=== PATIENT | female | born 1940 | race Two or more races ===

== ENCOUNTER 2018-01-06 09:02 | Outpatient (CLI) | payer OTHER | END 2018-01-06 09:05 | disposition home or self-care (01) | LOC: LAB 09:02 | DX: C50.111 Malignant neoplasm of central portion of right female breast (principal); D51.8 Other vitamin B12 deficiency anemias; E06.3 Autoimmune thyroiditis; I10 Essential (primary) hypertension; E08.65 Diabetes mellitus due to underlying condition with hyperglycemia; Z95.1 Presence of aortocoronary bypass graft; D50.8 Other iron deficiency anemias; R97.0 Elevated carcinoembryonic antigen [CEA]; R97.8 Other abnormal tumor markers ==

== ENCOUNTER 2018-04-18 09:39 | Outpatient (CLI) | payer OTHER | END 2018-04-18 09:40 | disposition home or self-care (01) | LOC: LAB 09:39 | DX: C50.111 Malignant neoplasm of central portion of right female breast (principal); D51.8 Other vitamin B12 deficiency anemias; E06.3 Autoimmune thyroiditis; I10 Essential (primary) hypertension; E08.65 Diabetes mellitus due to underlying condition with hyperglycemia; Z95.1 Presence of aortocoronary bypass graft; D50.8 Other iron deficiency anemias; R97.0 Elevated carcinoembryonic antigen [CEA]; R97.8 Other abnormal tumor markers; K90.89 Other intestinal malabsorption ==

== ENCOUNTER 2018-04-25 07:18 | Outpatient (CLI) | payer OTHER | END 2018-04-25 09:38 | disposition home or self-care (01) | LOC: TOM 07:18 | DX: C50.111 Malignant neoplasm of central portion of right female breast (principal); D51.8 Other vitamin B12 deficiency anemias; E06.3 Autoimmune thyroiditis; I10 Essential (primary) hypertension; E08.65 Diabetes mellitus due to underlying condition with hyperglycemia; Z95.1 Presence of aortocoronary bypass graft | CPT/HCPCS: 71260; 74177; Q9965 ==

== ENCOUNTER 2018-05-04 08:14 | Outpatient (CLI) | payer OTHER | END 2018-05-04 09:00 | disposition home or self-care (01) | LOC: NUCLEAR 08:14 | DX: M81.0 Age-related osteoporosis without current pathological fracture (principal); C50.111 Malignant neoplasm of central portion of right female breast; D51.8 Other vitamin B12 deficiency anemias; I10 Essential (primary) hypertension; E08.65 Diabetes mellitus due to underlying condition with hyperglycemia; Z95.1 Presence of aortocoronary bypass graft ==

== ENCOUNTER → 2018-08-05 | Outpatient (CLI) | payer OTHER | END | disposition home or self-care (01) | LOC: LAB 09:02 | DX: C50.111 Malignant neoplasm of central portion of right female breast (principal); D51.8 Other vitamin B12 deficiency anemias; E06.3 Autoimmune thyroiditis; I10 Essential (primary) hypertension; E08.65 Diabetes mellitus due to underlying condition with hyperglycemia; Z95.1 Presence of aortocoronary bypass graft; D50.8 Other iron deficiency anemias; E03.8 Other specified hypothyroidism; R97.0 Elevated carcinoembryonic antigen [CEA]; R97.8 Other abnormal tumor markers; D51.0 Vitamin B12 deficiency anemia due to intrinsic factor deficiency; D51.1 Vitamin B12 deficiency anemia due to selective vitamin B12 malabsorption with proteinuria; I87.2 Venous insufficiency (chronic) (peripheral) ==

== ENCOUNTER 2018-11-09 08:39 | Outpatient (CLI) | payer OTHER | END 2018-11-09 15:00 | disposition home or self-care (01) | LOC: LAB 08:39 | DX: C50.111 Malignant neoplasm of central portion of right female breast (principal); D51.8 Other vitamin B12 deficiency anemias; D72.1 Eosinophilia; E06.3 Autoimmune thyroiditis; I10 Essential (primary) hypertension; E08.65 Diabetes mellitus due to underlying condition with hyperglycemia; Z95.1 Presence of aortocoronary bypass graft; J30.89 Other allergic rhinitis; D50.8 Other iron deficiency anemias; R97.0 Elevated carcinoembryonic antigen [CEA]; R97.8 Other abnormal tumor markers; R73.01 Impaired fasting glucose ==

== ENCOUNTER 2019-01-20 09:28 | Outpatient (CLI) | payer OTHER | END 2019-01-20 09:58 | disposition home or self-care (01) | LOC: LAB 09:28 | DX: R19.8 Other specified symptoms and signs involving the digestive system and abdomen (principal); E06.5 Other chronic thyroiditis; L50.8 Other urticaria ==

== ENCOUNTER 2019-03-27 07:26 | Outpatient (CLI) | payer OTHER | END 2019-03-27 07:33 | disposition home or self-care (01) | LOC: LAB 07:26 | DX: D72.1 Eosinophilia (principal); I10 Essential (primary) hypertension; R73.01 Impaired fasting glucose ==

== ENCOUNTER 2019-04-03 07:18 | Outpatient (CLI) | payer OTHER | END 2019-04-03 07:36 | disposition home or self-care (01) | LOC: TOM 07:18 | DX: E08.65 Diabetes mellitus due to underlying condition with hyperglycemia (principal); C50.111 Malignant neoplasm of central portion of right female breast; D51.8 Other vitamin B12 deficiency anemias; D72.1 Eosinophilia; E06.3 Autoimmune thyroiditis; I10 Essential (primary) hypertension; Z95.1 Presence of aortocoronary bypass graft; J30.89 Other allergic rhinitis | CPT/HCPCS: 71260; 74177; Q9965 ==

== ENCOUNTER 2019-04-06 07:06 | Outpatient (CLI) | payer OTHER | END 2019-04-06 07:18 | disposition home or self-care (01) | LOC: LAB 07:06 | DX: C50.111 Malignant neoplasm of central portion of right female breast (principal); D51.8 Other vitamin B12 deficiency anemias; D72.1 Eosinophilia; E06.3 Autoimmune thyroiditis; I10 Essential (primary) hypertension; E08.65 Diabetes mellitus due to underlying condition with hyperglycemia; Z95.1 Presence of aortocoronary bypass graft; J30.9 Allergic rhinitis, unspecified; D50.8 Other iron deficiency anemias; K90.89 Other intestinal malabsorption; R97.0 Elevated carcinoembryonic antigen [CEA]; R97.8 Other abnormal tumor markers ==

== ENCOUNTER → 2019-07-21 09:09 | Outpatient (CLI) | payer OTHER ==
[~2019-07-21 09:09] MED LIST: COZAAR50 MG
== END | disposition home or self-care (01) ==
LOC: LAB 09:09
DX: C50.111 Malignant neoplasm of central portion of right female breast (principal); D51.8 Other vitamin B12 deficiency anemias; D72.1 Eosinophilia; E06.3 Autoimmune thyroiditis; I10 Essential (primary) hypertension; E08.65 Diabetes mellitus due to underlying condition with hyperglycemia; Z95.1 Presence of aortocoronary bypass graft; J30.89 Other allergic rhinitis; D50.8 Other iron deficiency anemias; R97.0 Elevated carcinoembryonic antigen [CEA]; R97.8 Other abnormal tumor markers

== ENCOUNTER 2019-07-24 13:23 | Emergency (ER) | payer OTHER ==
[~2019-07-24] VITALS: Ht 157.5 cm; Wt 61.2 kg
[2019-07-24] MEDS ORDERED: COZAAR50 MG (13:42)
== END 2019-07-24 17:11 | disposition home or self-care (01) ==
LOC: ER 13:23
DX: R42 Dizziness and giddiness (principal)

== ENCOUNTER 2019-07-25 11:28 | Emergency (ER) | payer OTHER ==
[~2019-07-25] VITALS: Ht 152.4 cm; Wt 61.2 kg
== END 2019-07-25 16:03 | disposition home or self-care (01) ==
LOC: ER 11:28
DX: R42 Dizziness and giddiness (principal); R47.81 Slurred speech; R53.1 Weakness
CPT/HCPCS: 70552

== ENCOUNTER 2019-08-01 14:24 | Outpatient (CLI) | payer OTHER | END 2019-08-01 14:30 | disposition home or self-care (01) | LOC: MAMO-SONO 14:24 | DX: C50.111 Malignant neoplasm of central portion of right female breast (principal); D51.8 Other vitamin B12 deficiency anemias; D72.1 Eosinophilia; E06.3 Autoimmune thyroiditis; I10 Essential (primary) hypertension; E08.65 Diabetes mellitus due to underlying condition with hyperglycemia; Z95.1 Presence of aortocoronary bypass graft; J30.89 Other allergic rhinitis ==

== ENCOUNTER 2019-08-14 09:15 | Outpatient (CLI) | payer OTHER | END 2019-08-14 09:38 | disposition home or self-care (01) | LOC: NUCLEAR 09:15 | DX: I63.513 Cerebral infarction due to unspecified occlusion or stenosis of bilateral middle cerebral arteries (principal) ==

== ENCOUNTER 2019-11-21 14:30 | Emergency (ER) | payer OTHER ==
[~2019-11-21] VITALS: Ht 157.5 cm; Wt 61.7 kg
== END 2019-11-21 17:57 | disposition home or self-care (01) ==
LOC: ER 14:30
DX: B34.9 Viral infection, unspecified (principal); R06.02 Shortness of breath

== ENCOUNTER → 2019-11-28 | Outpatient (CLI) | payer OTHER | END | disposition home or self-care (01) | LOC: RAD 11:27 | DX: M54.5 Low back pain (principal) ==

== ENCOUNTER 2019-12-20 07:40 | Outpatient (CLI) | payer OTHER | END 2019-12-20 07:50 | disposition home or self-care (01) | LOC: LAB 07:40 | DX: C50.111 Malignant neoplasm of central portion of right female breast (principal); D51.8 Other vitamin B12 deficiency anemias; D72.1 Eosinophilia; E06.3 Autoimmune thyroiditis; I10 Essential (primary) hypertension; E08.65 Diabetes mellitus due to underlying condition with hyperglycemia; Z95.1 Presence of aortocoronary bypass graft; J30.89 Other allergic rhinitis; I63.89 Other cerebral infarction; I67.89 Other cerebrovascular disease; I69.352 Hemiplegia and hemiparesis following cerebral infarction affecting left dominant side; D50.8 Other iron deficiency anemias; R97.0 Elevated carcinoembryonic antigen [CEA]; R97.8 Other abnormal tumor markers ==

== ENCOUNTER → 2020-03-11 07:23 | Outpatient (CLI) | payer OTHER | END | disposition home or self-care (01) | LOC: LAB 07:23 | DX: D50.8 Other iron deficiency anemias (principal); I10 Essential (primary) hypertension; D51.8 Other vitamin B12 deficiency anemias; C50.919 Malignant neoplasm of unspecified site of unspecified female breast; R97.8 Other abnormal tumor markers; R97.0 Elevated carcinoembryonic antigen [CEA]; C50.111 Malignant neoplasm of central portion of right female breast; D72.1 Eosinophilia; E06.3 Autoimmune thyroiditis; E08.65 Diabetes mellitus due to underlying condition with hyperglycemia; Z95.1 Presence of aortocoronary bypass graft; J30.89 Other allergic rhinitis; I63.89 Other cerebral infarction; I00-I99 Diseases of the circulatory system; I69.352 Hemiplegia and hemiparesis following cerebral infarction affecting left dominant side ==

== ENCOUNTER 2020-03-19 07:19 | Outpatient (CLI) | payer OTHER | END 2020-03-19 07:24 | disposition home or self-care (01) | LOC: NUCLEAR 07:19 | DX: C50.111 Malignant neoplasm of central portion of right female breast (principal); D51.8 Other vitamin B12 deficiency anemias; D72.1 Eosinophilia; E06.3 Autoimmune thyroiditis; I10 Essential (primary) hypertension; E08.65 Diabetes mellitus due to underlying condition with hyperglycemia; Z95.1 Presence of aortocoronary bypass graft; J30.9 Allergic rhinitis, unspecified; I63.9 Cerebral infarction, unspecified; I67.89 Other cerebrovascular disease; I69.352 Hemiplegia and hemiparesis following cerebral infarction affecting left dominant side | CPT/HCPCS: 78816; A9552 ==

== ENCOUNTER 2020-08-06 09:34 | Outpatient (CLI) | payer OTHER | END 2020-08-06 09:39 | disposition home or self-care (01) | LOC: LAB 09:34 | PROVIDERS: ATTEND Internal Medicine Hematology & Oncology | DX: D50.8 Other iron deficiency anemias (principal); D51.8 Other vitamin B12 deficiency anemias; C50.919 Malignant neoplasm of unspecified site of unspecified female breast; R97.8 Other abnormal tumor markers; R97.0 Elevated carcinoembryonic antigen [CEA]; I10 Essential (primary) hypertension; C50.111 Malignant neoplasm of central portion of right female breast; D72.1 Eosinophilia; E06.3 Autoimmune thyroiditis; E08.65 Diabetes mellitus due to underlying condition with hyperglycemia; Z95.1 Presence of aortocoronary bypass graft; J30.89 Other allergic rhinitis; I63.89 Other cerebral infarction; I67.89 Other cerebrovascular disease; I69.352 Hemiplegia and hemiparesis following cerebral infarction affecting left dominant side ==

== ENCOUNTER 2020-08-19 10:12 | Outpatient (CLI) | payer OTHER | END 2020-08-19 10:18 | disposition home or self-care (01) | LOC: MAMO-SONO 10:12 | PROVIDERS: ATTEND Internal Medicine Hematology & Oncology | DX: C50.111 Malignant neoplasm of central portion of right female breast (principal); D51.8 Other vitamin B12 deficiency anemias; D72.19 Other eosinophilia; E06.3 Autoimmune thyroiditis; I10 Essential (primary) hypertension; E08.65 Diabetes mellitus due to underlying condition with hyperglycemia; Z95.1 Presence of aortocoronary bypass graft; J30.89 Other allergic rhinitis; I63.89 Other cerebral infarction; I67.89 Other cerebrovascular disease; I69.352 Hemiplegia and hemiparesis following cerebral infarction affecting left dominant side ==

== ENCOUNTER → 2020-10-04 | Emergency (ER) | payer OTHER ==
[~2020-10-04] VITALS: Ht 157.5 cm; Wt 60.8 kg
[~2020-10-04] MED LIST changes: +ATORVASTATIN CA10 MG PO; +CELECOXIB200 MG PO; +CETIRIZINE HCL10 MG PO; +CLOPIDOGREL BIS75 MG PO; +CYANOCOBAL1000 MCG/1; +GABAPENTIN100 M2 PO; +LOSARTAN POTASS25 MG PO; +MONTELUKAST SOD10 MG PO; +PHENERGAN25 MG PO; +TRAM1TAB98 PO; +VITAMIN D31250 MCG PO
== END | disposition home or self-care (01) ==
LOC: ER 08:56
DX: S30.0XXA Contusion of lower back and pelvis, initial encounter (principal); M54.5 Low back pain; M62.830 Muscle spasm of back; W18.39XA Other fall on same level, initial encounter; Y93.89 Activity, other specified; Y92.098 Other place in other non-institutional residence as the place of occurrence of the external cause; Y99.8 Other external cause status

== ENCOUNTER 2020-10-22 14:45 | Emergency (ER) | payer OTHER ==
[~2020-10-22] VITALS: Ht 157.5 cm; Wt 59.0 kg
[~2020-10-22 14:45] MED LIST changes: -ATORVASTATIN CA10 MG PO; -CELECOXIB200 MG PO; -CETIRIZINE HCL10 MG PO; -CLOPIDOGREL BIS75 MG PO; -CYANOCOBAL1000 MCG/1; -GABAPENTIN100 M2 PO; -LOSARTAN POTASS25 MG PO; -MONTELUKAST SOD10 MG PO; -PHENERGAN25 MG PO; -TRAM1TAB98 PO; -VITAMIN D31250 MCG PO
[2020-10-22] MEDS ORDERED: MONTELUKAST SOD10 MG PO (15:18)
[2020-10-22] MEDS ORDERED: GABAPENTIN100 M2 PO (15:18)
[2020-10-22] MEDS ORDERED: TRAM1TAB98 PO (15:19)
[2020-10-22] MEDS ORDERED: CLOPIDOGREL BIS75 MG PO (15:19)
[2020-10-22] MEDS ORDERED: CELECOXIB200 MG PO (15:19)
[2020-10-22] MEDS ORDERED: LOSARTAN POTASS25 MG PO (15:20)
[2020-10-22] MEDS ORDERED: VITAMIN D31250 MCG PO (15:20)
[2020-10-22] MEDS ORDERED: CYANOCOBAL1000 MCG/1 (15:20)
[2020-10-22] MEDS ORDERED: CETIRIZINE HCL10 MG PO (15:20)
[2020-10-22] MEDS ORDERED: ATORVASTATIN CA10 MG PO (15:21)
[2020-10-22] MEDS ORDERED: PHENERGAN25 MG PO (19:19)
== END 2020-10-22 19:27 | disposition home or self-care (01) ==
LOC: ER 14:45
DX: M54.5 Low back pain (principal); G89.11 Acute pain due to trauma

== ENCOUNTER 2020-12-11 08:17 | Outpatient (CLI) | payer OTHER ==
[~2020-12-11 08:17] MED LIST changes: +ATORVASTATIN CA10 MG PO; +CELECOXIB200 MG PO; +CETIRIZINE HCL10 MG PO; +CLOPIDOGREL BIS75 MG PO; +CYANOCOBAL1000 MCG/1; +GABAPENTIN100 M2 PO; +LOSARTAN POTASS25 MG PO; +MONTELUKAST SOD10 MG PO; +PHENERGAN25 MG PO; +TRAM1TAB98 PO; +VITAMIN D31250 MCG PO
== END 2020-12-11 08:23 | disposition home or self-care (01) ==
LOC: LAB 08:17
PROVIDERS: ATTEND Internal Medicine Hematology & Oncology
DX: D50.8 Other iron deficiency anemias (principal); I10 Essential (primary) hypertension; R74.02 Elevation of levels of lactic acid dehydrogenase [LDH]; K76.89 Other specified diseases of liver; R79.89 Other specified abnormal findings of blood chemistry; D51.8 Other vitamin B12 deficiency anemias; C50.919 Malignant neoplasm of unspecified site of unspecified female breast; R97.8 Other abnormal tumor markers; R97.0 Elevated carcinoembryonic antigen [CEA]; C50.111 Malignant neoplasm of central portion of right female breast; D72.19 Other eosinophilia; E06.3 Autoimmune thyroiditis; E08.65 Diabetes mellitus due to underlying condition with hyperglycemia; Z95.1 Presence of aortocoronary bypass graft; J30.89 Other allergic rhinitis; I63.89 Other cerebral infarction; I67.89 Other cerebrovascular disease; I69.352 Hemiplegia and hemiparesis following cerebral infarction affecting left dominant side

== ENCOUNTER 2021-01-22 13:52 | Outpatient (CLI) | payer OTHER | END 2021-01-22 13:55 | disposition home or self-care (01) | LOC: NUCLEAR 13:52 | PROVIDERS: ATTEND Internal Medicine | DX: M81.0 Age-related osteoporosis without current pathological fracture (principal) ==

== ENCOUNTER → 2021-05-13 10:46 | Outpatient (CLI) | payer OTHER | END | disposition home or self-care (01) | LOC: LAB 10:46 | PROVIDERS: ATTEND Internal Medicine Cardiovascular Disease | DX: I63.81 Other cerebral infarction due to occlusion or stenosis of small artery (principal) ==

== ENCOUNTER 2021-06-27 11:01 | Outpatient (CLI) | payer OTHER | END 2021-06-27 11:07 | disposition home or self-care (01) | LOC: LAB 11:01 | PROVIDERS: ATTEND Internal Medicine Hematology & Oncology | DX: D50.8 Other iron deficiency anemias (principal); I10 Essential (primary) hypertension; R74.02 Elevation of levels of lactic acid dehydrogenase [LDH]; K76.89 Other specified diseases of liver; R79.89 Other specified abnormal findings of blood chemistry; D51.8 Other vitamin B12 deficiency anemias; C50.919 Malignant neoplasm of unspecified site of unspecified female breast; R97.8 Other abnormal tumor markers; R97.0 Elevated carcinoembryonic antigen [CEA]; C50.111 Malignant neoplasm of central portion of right female breast; E06.3 Autoimmune thyroiditis; E08.65 Diabetes mellitus due to underlying condition with hyperglycemia; Z95.1 Presence of aortocoronary bypass graft; J30.89 Other allergic rhinitis; I63.89 Other cerebral infarction; I67.89 Other cerebrovascular disease; I69.352 Hemiplegia and hemiparesis following cerebral infarction affecting left dominant side ==

== ENCOUNTER → 2021-09-10 09:04 | Outpatient (CLI) | payer OTHER | END | disposition home or self-care (01) | LOC: LAB 09:04 | PROVIDERS: ATTEND Internal Medicine Hematology & Oncology | DX: D50.8 Other iron deficiency anemias (principal); I10 Essential (primary) hypertension; R74.02 Elevation of levels of lactic acid dehydrogenase [LDH]; K76.89 Other specified diseases of liver; R79.89 Other specified abnormal findings of blood chemistry; R97.8 Other abnormal tumor markers; R97.0 Elevated carcinoembryonic antigen [CEA]; C50.111 Malignant neoplasm of central portion of right female breast; D51.8 Other vitamin B12 deficiency anemias; D72.19 Other eosinophilia; E06.3 Autoimmune thyroiditis; E08.65 Diabetes mellitus due to underlying condition with hyperglycemia; Z95.1 Presence of aortocoronary bypass graft; J30.89 Other allergic rhinitis; I63.89 Other cerebral infarction; I67.89 Other cerebrovascular disease; I69.352 Hemiplegia and hemiparesis following cerebral infarction affecting left dominant side ==

== ENCOUNTER 2021-11-30 11:45 | Outpatient (CLI) | payer OTHER | END 2021-11-30 11:52 | disposition home or self-care (01) | LOC: MRI 11:45 | PROVIDERS: ATTEND Internal Medicine Hematology & Oncology | DX: M48.07 Spinal stenosis, lumbosacral region (principal); C50.111 Malignant neoplasm of central portion of right female breast; D51.8 Other vitamin B12 deficiency anemias; E06.3 Autoimmune thyroiditis; I10 Essential (primary) hypertension; E08.65 Diabetes mellitus due to underlying condition with hyperglycemia; Z95.1 Presence of aortocoronary bypass graft; J30.89 Other allergic rhinitis; I63.89 Other cerebral infarction; I67.89 Other cerebrovascular disease; I69.352 Hemiplegia and hemiparesis following cerebral infarction affecting left dominant side | CPT/HCPCS: 72148 ==

== ENCOUNTER 2021-12-09 09:19 | Outpatient (CLI) | payer OTHER | END 2021-12-09 09:25 | disposition home or self-care (01) | LOC: LAB 09:19 | PROVIDERS: ATTEND Internal Medicine Hematology & Oncology | DX: D50.8 Other iron deficiency anemias (principal); I10 Essential (primary) hypertension; R74.02 Elevation of levels of lactic acid dehydrogenase [LDH]; K76.89 Other specified diseases of liver; R79.9 Abnormal finding of blood chemistry, unspecified; C50.919 Malignant neoplasm of unspecified site of unspecified female breast; R97.8 Other abnormal tumor markers; E55.9 Vitamin D deficiency, unspecified; D51.8 Other vitamin B12 deficiency anemias ==

== ENCOUNTER 2022-03-08 07:53 | Outpatient (CLI) | payer OTHER | END 2022-03-08 08:04 | disposition home or self-care (01) | LOC: LAB 07:53 | PROVIDERS: ATTEND Internal Medicine Cardiovascular Disease | DX: D64.9 Anemia, unspecified (principal); D72.9 Disorder of white blood cells, unspecified; E78.01 Familial hypercholesterolemia; E03.8 Other specified hypothyroidism; E55.9 Vitamin D deficiency, unspecified ==

== ENCOUNTER 2022-05-11 08:45 | Outpatient (CLI) | payer OTHER | END 2022-05-11 08:46 | disposition home or self-care (01) | LOC: LAB 08:45 | PROVIDERS: ATTEND Internal Medicine Hematology & Oncology | DX: D50.8 Other iron deficiency anemias (principal); I10 Essential (primary) hypertension; R74.02 Elevation of levels of lactic acid dehydrogenase [LDH]; K76.89 Other specified diseases of liver; D51.8 Other vitamin B12 deficiency anemias; E55.9 Vitamin D deficiency, unspecified; C50.919 Malignant neoplasm of unspecified site of unspecified female breast; R97.8 Other abnormal tumor markers; R97.0 Elevated carcinoembryonic antigen [CEA]; C50.111 Malignant neoplasm of central portion of right female breast; E06.3 Autoimmune thyroiditis; E08.65 Diabetes mellitus due to underlying condition with hyperglycemia; Z95.1 Presence of aortocoronary bypass graft; J30.9 Allergic rhinitis, unspecified; I63.9 Cerebral infarction, unspecified; I67.89 Other cerebrovascular disease; I69.352 Hemiplegia and hemiparesis following cerebral infarction affecting left dominant side ==

== ENCOUNTER 2022-08-23 08:49 | Outpatient (CLI) | payer OTHER | END 2022-08-23 08:53 | disposition home or self-care (01) | LOC: LAB 08:49 | PROVIDERS: ATTEND Internal Medicine Hematology & Oncology | DX: D50.8 Other iron deficiency anemias (principal); I10 Essential (primary) hypertension; R74.02 Elevation of levels of lactic acid dehydrogenase [LDH]; K76.89 Other specified diseases of liver; D51.8 Other vitamin B12 deficiency anemias; E55.9 Vitamin D deficiency, unspecified; E03.8 Other specified hypothyroidism; R97.8 Other abnormal tumor markers; R97.0 Elevated carcinoembryonic antigen [CEA]; C50.111 Malignant neoplasm of central portion of right female breast; I69.352 Hemiplegia and hemiparesis following cerebral infarction affecting left dominant side; J30.9 Allergic rhinitis, unspecified; E08.65 Diabetes mellitus due to underlying condition with hyperglycemia ==

== ENCOUNTER 2022-12-13 08:56 | Outpatient (CLI) | payer OTHER | END 2022-12-13 09:00 | disposition home or self-care (01) | LOC: RAD 08:56 | PROVIDERS: ATTEND Internal Medicine | DX: M25.571 Pain in right ankle and joints of right foot (principal) ==

== ENCOUNTER 2022-12-15 08:49 | Outpatient (CLI) | payer OTHER | END 2022-12-15 08:53 | disposition home or self-care (01) | LOC: LAB 08:49 | PROVIDERS: ATTEND Internal Medicine Hematology & Oncology | DX: D50.8 Other iron deficiency anemias (principal); I10 Essential (primary) hypertension; R74.02 Elevation of levels of lactic acid dehydrogenase [LDH]; K76.89 Other specified diseases of liver; D51.8 Other vitamin B12 deficiency anemias; E55.9 Vitamin D deficiency, unspecified; E03.8 Other specified hypothyroidism; C50.919 Malignant neoplasm of unspecified site of unspecified female breast; R97.8 Other abnormal tumor markers; D47.2 Monoclonal gammopathy; C90.00 Multiple myeloma not having achieved remission; C50.111 Malignant neoplasm of central portion of right female breast; E06.3 Autoimmune thyroiditis; E08.65 Diabetes mellitus due to underlying condition with hyperglycemia; Z95.1 Presence of aortocoronary bypass graft; J30.9 Allergic rhinitis, unspecified; I63.9 Cerebral infarction, unspecified; I67.89 Other cerebrovascular disease; I69.352 Hemiplegia and hemiparesis following cerebral infarction affecting left dominant side; D72.19 Other eosinophilia ==

== ENCOUNTER 2022-12-15 09:53 | Outpatient (CLI) | payer OTHER | END 2022-12-15 10:16 | disposition home or self-care (01) | LOC: MAMO-SONO 09:53 | PROVIDERS: ATTEND Internal Medicine Hematology & Oncology | DX: Z12.31 Encounter for screening mammogram for malignant neoplasm of breast (principal); N63.0 Unspecified lump in unspecified breast; N64.4 Mastodynia; C50.111 Malignant neoplasm of central portion of right female breast ==

== ENCOUNTER 2022-12-23 07:31 | Outpatient (CLI) | payer OTHER | END 2022-12-23 07:33 | disposition home or self-care (01) | LOC: NUCLEAR 07:31 | PROVIDERS: ATTEND Internal Medicine Hematology & Oncology | DX: C50.911 Malignant neoplasm of unspecified site of right female breast (principal); D51.8 Other vitamin B12 deficiency anemias; D72.10 Eosinophilia, unspecified; E06.3 Autoimmune thyroiditis; I10 Essential (primary) hypertension; E08.65 Diabetes mellitus due to underlying condition with hyperglycemia; Z95.1 Presence of aortocoronary bypass graft; J30.9 Allergic rhinitis, unspecified; I63.9 Cerebral infarction, unspecified; I67.89 Other cerebrovascular disease; I69.352 Hemiplegia and hemiparesis following cerebral infarction affecting left dominant side | CPT/HCPCS: 78815; A9552 ==

== ENCOUNTER 2023-05-13 08:08 | Outpatient (CLI) | payer OTHER | END 2023-05-13 08:10 | disposition home or self-care (01) | LOC: LAB 08:08 | PROVIDERS: ATTEND Internal Medicine Hematology & Oncology | DX: D50.8 Other iron deficiency anemias (principal); I10 Essential (primary) hypertension; R74.02 Elevation of levels of lactic acid dehydrogenase [LDH]; K76.89 Other specified diseases of liver; D51.8 Other vitamin B12 deficiency anemias; R97.8 Other abnormal tumor markers; C50.919 Malignant neoplasm of unspecified site of unspecified female breast; C50.111 Malignant neoplasm of central portion of right female breast; E06.3 Autoimmune thyroiditis; E08.65 Diabetes mellitus due to underlying condition with hyperglycemia; Z95.1 Presence of aortocoronary bypass graft; J30.9 Allergic rhinitis, unspecified; I63.9 Cerebral infarction, unspecified; I67.89 Other cerebrovascular disease; I69.352 Hemiplegia and hemiparesis following cerebral infarction affecting left dominant side; D72.19 Other eosinophilia ==

== ENCOUNTER 2023-09-14 07:23 | Outpatient (CLI) | payer OTHER ==
[2023-09-14 08:44] LABS: ALBUMIN 3.7 gm/dL (3.4-5.0); BILIRUBIN TOTAL 0.56 mg/dL (0.3-1.2); BILIRUBIN,CONJUGATED 0.17 mg/dL (0.0-0.2); BILIRUBIN,UNCONJUGATED 0.39 mg/dL (0.0-0.6); CALCIUM 9.2 mg/dL (8.5-10.1); CREATININE SERUM 0.78 mg/dL (0.55-1.02); GFR 70.71; HEMOGLOBIN 12.2 g/dL (12.0-15.00); MEAN CELL VOLUME 88.8 fL (80.00-100.00); MEAN CORPUSCULAR HEMOGLOBIN 31.1 pg (27.00-32.0); PLATELET COUNT 171 K/uL (150-450); POTASSIUM 4.16 mEq/L (3.5-5.1); RED BLOOD COUNT 3.94 M/uL (4.00-6.00); TOTAL PROTEIN 7.5 gm/dL (6.4-8.2)
== END 2023-09-14 07:24 | disposition home or self-care (01) ==
LOC: LAB 07:23
PROVIDERS: ATTEND Internal Medicine Hematology & Oncology
DX: I10 Essential (primary) hypertension (principal); R74.02 Elevation of levels of lactic acid dehydrogenase [LDH]; K76.89 Other specified diseases of liver; D51.8 Other vitamin B12 deficiency anemias; C50.919 Malignant neoplasm of unspecified site of unspecified female breast; R97.8 Other abnormal tumor markers; R97.0 Elevated carcinoembryonic antigen [CEA]; C50.111 Malignant neoplasm of central portion of right female breast; E06.3 Autoimmune thyroiditis; E08.65 Diabetes mellitus due to underlying condition with hyperglycemia; Z95.1 Presence of aortocoronary bypass graft; J30.9 Allergic rhinitis, unspecified; I63.9 Cerebral infarction, unspecified; I67.89 Other cerebrovascular disease; I69.352 Hemiplegia and hemiparesis following cerebral infarction affecting left dominant side

== ENCOUNTER 2023-12-16 09:53 | Outpatient (CLI) | payer OTHER ==
[2023-12-16 10:35] LABS: HEMATOCRIT 37.6 % (36.0-45.00); HEMOGLOBIN 12.5 g/dL (12.0-15.00); MEAN CELL VOLUME 88.1 fL (80.00-100.00); MEAN CORPUSCULAR HEMOGLOBIN 29.3 pg (27.00-32.0); MEAN CORPUSCULAR HGB CONC 33.3 g/dl (32.0-36.0); PLATELET COUNT 149 K/uL (150-450); RED BLOOD COUNT 4.26 M/uL (4.00-6.00); RED CELL DISTRIBUTION WIDTH 12.5 % (11.5-14.5)
[2023-12-16 11:04] LABS: BILIRUBIN TOTAL 0.6 mg/dL (0.3-1.2); BILIRUBIN,CONJUGATED 0.16 mg/dL (0.0-0.2); BILIRUBIN,UNCONJUGATED 0.44 mg/dL (0.0-0.6); CALCIUM 9.5 mg/dL (8.5-10.1); CREATININE SERUM 0.76 mg/dL (0.55-1.02); GFR 72.86; POTASSIUM 4.09 mEq/L (3.5-5.1); TOTAL PROTEIN 7.7 gm/dL (6.4-8.2)
[2023-12-16 11:37] LABS: FOLIC ACID > 20.00 ng/ml (4.78-20); VITAMIN D3 25 HYDROXY 53.01 ng/ml (30-120)
== END 2023-12-16 10:02 | disposition home or self-care (01) ==
LOC: LAB 09:53
PROVIDERS: ATTEND Internal Medicine Hematology & Oncology
DX: C50.111 Malignant neoplasm of central portion of right female breast (principal); D51.8 Other vitamin B12 deficiency anemias; E06.3 Autoimmune thyroiditis; I10 Essential (primary) hypertension; E08.65 Diabetes mellitus due to underlying condition with hyperglycemia; J30.9 Allergic rhinitis, unspecified; I63.9 Cerebral infarction, unspecified; I67.89 Other cerebrovascular disease; I69.352 Hemiplegia and hemiparesis following cerebral infarction affecting left dominant side; B82.9 Intestinal parasitism, unspecified

== ENCOUNTER 2023-12-19 10:15 | Outpatient (CLI) | payer OTHER | END 2023-12-19 10:18 | disposition home or self-care (01) | LOC: MAMO-SONO 10:15 | PROVIDERS: ATTEND Internal Medicine Hematology & Oncology | DX: C50.111 Malignant neoplasm of central portion of right female breast (principal); D51.8 Other vitamin B12 deficiency anemias; D72.19 Other eosinophilia; E06.3 Autoimmune thyroiditis; I10 Essential (primary) hypertension; E08.65 Diabetes mellitus due to underlying condition with hyperglycemia; Z95.1 Presence of aortocoronary bypass graft; J30.9 Allergic rhinitis, unspecified; I63.9 Cerebral infarction, unspecified; I67.89 Other cerebrovascular disease; B82.9 Intestinal parasitism, unspecified ==

== ENCOUNTER 2024-07-05 09:23 | Outpatient (CLI) | payer OTHER ==
[2024-07-05 10:08] LABS: HEMATOCRIT 35.7 % (36.0-45.00); MEAN CELL VOLUME 88.4 fL (80.00-100.00); MEAN CORPUSCULAR HEMOGLOBIN 29.7 pg (27.00-32.0); MEAN CORPUSCULAR HGB CONC 33.6 g/dl (32.0-36.0); PLATELET COUNT 195 K/uL (150-450); RED BLOOD COUNT 4.04 M/uL (4.00-6.00); RED CELL DISTRIBUTION WIDTH 13.5 % (11.5-14.5)
[2024-07-05 10:57] LABS: ALBUMIN 3.8 gm/dL (3.4-5.0); BILIRUBIN TOTAL 0.37 mg/dL (0.3-1.2); BILIRUBIN,CONJUGATED 0.1 mg/dL (0.0-0.2); BILIRUBIN,UNCONJUGATED 0.27 mg/dL (0.0-0.6); CALCIUM 9.3 mg/dL (8.5-10.1); CREATININE SERUM 0.63 mg/dL (0.55-1.02); GFR 90.25; POTASSIUM 4.14 mEq/L (3.5-5.1); TOTAL PROTEIN 7.5 gm/dL (6.4-8.2)
[2024-07-05 12:04] LABS: FOLIC ACID > 20.00 ng/ml (4.78-20)
[2024-07-06 09:11] LABS: CA 125 11.4 U/mL (0.0-38.1); CA 15-3 17.7 U/mL (0.0-25.0)
== END 2024-07-05 09:27 | disposition home or self-care (01) ==
LOC: LAB 09:23
PROVIDERS: ATTEND Internal Medicine Hematology & Oncology
DX: C50.111 Malignant neoplasm of central portion of right female breast (principal); D51.8 Other vitamin B12 deficiency anemias; E06.3 Autoimmune thyroiditis; I10 Essential (primary) hypertension; E08.65 Diabetes mellitus due to underlying condition with hyperglycemia; Z95.1 Presence of aortocoronary bypass graft; J30.9 Allergic rhinitis, unspecified; I63.9 Cerebral infarction, unspecified; I67.89 Other cerebrovascular disease; I69.352 Hemiplegia and hemiparesis following cerebral infarction affecting left dominant side; B82.9 Intestinal parasitism, unspecified; D50.8 Other iron deficiency anemias; R74.02 Elevation of levels of lactic acid dehydrogenase [LDH]; K76.89 Other specified diseases of liver; E55.9 Vitamin D deficiency, unspecified; C50.919 Malignant neoplasm of unspecified site of unspecified female breast; C56.9 Malignant neoplasm of unspecified ovary; R97.8 Other abnormal tumor markers

== ENCOUNTER → 2024-10-08 08:25 | Outpatient (CLI) | payer OTHER ==
[2024-10-08 08:43] LABS: HEMATOCRIT 37.5 % (36.0-45.00); HEMOGLOBIN 12.7 g/dL (12.0-15.00); MEAN CELL VOLUME 87.4 fL (80.00-100.00); MEAN CORPUSCULAR HEMOGLOBIN 29.6 pg (27.00-32.0); MEAN CORPUSCULAR HGB CONC 33.9 g/dl (32.0-36.0); PLATELET COUNT 163 K/uL (150-450); RED CELL DISTRIBUTION WIDTH 12.9 % (11.5-14.5)
[2024-10-08 09:48] LABS: ALBUMIN 4.1 gm/dL (3.4-5.0); BILIRUBIN TOTAL 0.62 mg/dL (0.3-1.2); CREATININE SERUM 0.69 mg/dL (0.55-1.02); GFR 81.25; GLOBULINA 3.3 G/DL (2.4-3.5); POTASSIUM 4.85 mEq/L (3.5-5.1); TOTAL PROTEIN 7.4 gm/dL (6.4-8.2)
== END | disposition home or self-care (01) ==
LOC: LAB 08:25
PROVIDERS: ATTEND Internal Medicine Gastroenterology
DX: K52.82 Eosinophilic colitis (principal); B96.81 Helicobacter pylori [H. pylori] as the cause of diseases classified elsewhere; D72.19 Other eosinophilia; B78.9 Strongyloidiasis, unspecified

== ENCOUNTER 2025-03-12 11:04 | Outpatient (CLI) | payer OTHER | END 2025-03-12 11:06 | disposition home or self-care (01) | LOC: MAMO-SONO 11:04 | PROVIDERS: ATTEND Internal Medicine Hematology & Oncology | DX: N63.0 Unspecified lump in unspecified breast (principal); N64.4 Mastodynia; C50.111 Malignant neoplasm of central portion of right female breast; D51.8 Other vitamin B12 deficiency anemias; D72.19 Other eosinophilia; E06.3 Autoimmune thyroiditis; I10 Essential (primary) hypertension; E08.65 Diabetes mellitus due to underlying condition with hyperglycemia; Z95.1 Presence of aortocoronary bypass graft; J30.9 Allergic rhinitis, unspecified; I63.9 Cerebral infarction, unspecified; I67.89 Other cerebrovascular disease; I69.352 Hemiplegia and hemiparesis following cerebral infarction affecting left dominant side; B82.9 Intestinal parasitism, unspecified; N28.1 Cyst of kidney, acquired; Z12.31 Encounter for screening mammogram for malignant neoplasm of breast ==

== ENCOUNTER 2025-03-16 21:29 | Emergency (ER) | payer OTHER ==
[~2025-03-16] VITALS: Ht 157.5 cm; Wt 58.1 kg
[2025-03-16] MEDS ORDERED: METFORMIN HCL500 M3 (22:18)
[2025-03-16] MEDS ORDERED: METOCLOPRAMIDE HCL 5 MG/ML VIAL IM STA (23:28)
[2025-03-16] MEDS ORDERED: METOCLOPRAMIDE HCL 5 MG/ML VIAL ONE (23:53)
== END 2025-03-17 00:29 | disposition home or self-care (01) ==
LOC: ER 21:29
DX: K21.9 Gastro-esophageal reflux disease without esophagitis (principal); R11.10 Vomiting, unspecified
CPT/HCPCS: 96372; 99282; J2765

== ENCOUNTER 2025-06-26 08:39 | Outpatient (CLI) | payer OTHER ==
[~2025-06-26 08:39] MED LIST changes: +METFORMIN HCL500 M3
[2025-06-26 09:06] LABS: BASO % 1.0 % (0.1-1.2); EOS # 0.19 (0.04-0.54); EOS % 3.8 % (0.7-7.0); LYMPH # 1.72 (1.18-3.74); LYMPH % 34.0 % (19.3-53.1); MEAN PLATELET VOLUME 10.30 fl (9.4-12.4); MONO # 0.35 (0.24-0.82); MONO % 6.9 % (4.7-12.5); NEUT # 2.75 (1.56-6.13); NEUT % 54.3 % (34.0-71.1); RED CELL DISTRIBUTION WIDTH 12.6 % (11.6-14.4)
[2025-06-26 09:29] LABS: ALT/SGPT 16.0 U/L (12-78); AST/SGOT 16.0 U/L (15-37); BILIRUBIN TOTAL 0.46 mg/dL (0.3-1.2); BILIRUBIN,CONJUGATED 0.13 mg/dL (0.0-0.2); BUN CREA RATIO 24.0 (7.0-25.0); CREATININE SERUM 0.82 mg/dL (0.55-1.02); FE 86.0 ug/dl (50-170); GFR 66.42; GLUCOSE FASTING 110.0 mg/dL (65-100); LDH 195.0 U/L (84-246); OSMOLALITY SERUM 288.0 MOSM/KG (275-295)
[2025-06-26 11:51] LABS: FOLIC ACID > 20.00 ng/ml (4.78-20); VITAMIN D3 25 HYDROXY > 120.00 ng/ml (30-120)
[2025-06-27 09:08] LABS: CA 125 13.1 U/mL (0.0-38.1)
[2025-06-27 15:12] LABS: CA 15-3 16.1 U/mL (0.0-25.0)
== END 2025-06-26 08:40 | disposition home or self-care (01) ==
LOC: LAB 08:39
PROVIDERS: ATTEND Internal Medicine Hematology & Oncology
DX: C50.111 Malignant neoplasm of central portion of right female breast (principal); C51.0 Malignant neoplasm of labium majus; C72.1 Malignant neoplasm of cauda equina; E06.3 Autoimmune thyroiditis; I10 Essential (primary) hypertension; E08.65 Diabetes mellitus due to underlying condition with hyperglycemia; Z95.1 Presence of aortocoronary bypass graft; J30.9 Allergic rhinitis, unspecified; I63.9 Cerebral infarction, unspecified; I67.89 Other cerebrovascular disease; I69.352 Hemiplegia and hemiparesis following cerebral infarction affecting left dominant side; B82.9 Intestinal parasitism, unspecified; N28.1 Cyst of kidney, acquired; D50.8 Other iron deficiency anemias; R74.02 Elevation of levels of lactic acid dehydrogenase [LDH]; K76.89 Other specified diseases of liver; E55.9 Vitamin D deficiency, unspecified; C50.919 Malignant neoplasm of unspecified site of unspecified female breast; R97.0 Elevated carcinoembryonic antigen [CEA]

== ENCOUNTER 2025-08-26 07:29 | Outpatient (CLI) | payer OTHER | END 2025-08-26 07:30 | disposition home or self-care (01) | LOC: MAMO-SONO | PROVIDERS: ATTEND Internal Medicine Hematology & Oncology | DX: N64.4 Mastodynia (principal); N63.0 Unspecified lump in unspecified breast; C50.111 Malignant neoplasm of central portion of right female breast; D51.8 Other vitamin B12 deficiency anemias; D72.10 Eosinophilia, unspecified; E06.3 Autoimmune thyroiditis; I10 Essential (primary) hypertension; E08.65 Diabetes mellitus due to underlying condition with hyperglycemia; Z95.1 Presence of aortocoronary bypass graft; J30.9 Allergic rhinitis, unspecified; I67.89 Other cerebrovascular disease; I69.352 Hemiplegia and hemiparesis following cerebral infarction affecting left dominant side; B82.9 Intestinal parasitism, unspecified; N28.1 Cyst of kidney, acquired | CPT/HCPCS: 78813; A9552 ==

== ENCOUNTER → 2025-10-28 09:50 | Outpatient (CLI) | payer OTHER | END | disposition home or self-care (01) | LOC: NUCLEAR 09:50 | PROVIDERS: ATTEND Psychiatry & Neurology Clinical Neurophysiology | DX: G30.1 Alzheimer's disease with late onset (principal) | CPT/HCPCS: 78803; A9557 ==